=== PATIENT | male | born 1980 | race Caucasian/White ===

== ENCOUNTER 2017-04-28 16:24 | Emergency (ER) | payer OTHER ==
[~2017-04-28] VITALS: Ht 185.4 cm; Wt 78.8 kg
[~2017-04-28 16:24] MED LIST: CEPH250 PO; CHLO.12%30; HYDR-3580 PO; IBUP800 PO
[2017-04-28 16:34] VITALS: BP 165/106; PULSE 91; RESP 16; TEMP 99.1; O2SAT 97
[2017-04-28] MEDS ORDERED: LIDOCAINE HCL 1% 50 ML VIAL INFIL ONE (16:45)
[2017-04-28] MEDS ORDERED: LIDOCAINE HCL 1% PF 30 ML VIAL ONE ×2 (16:46→16:51)
[2017-04-28] MEDS ORDERED: PROPOFOL 200 MG/20 ML AMP IV ONE (17:00)
[2017-04-28 17:10] VITALS: O2SAT 97
[2017-04-28] MEDS ORDERED: PERC5TAB12 PO (17:27)
--- NOTE | 2017-04-28 17:29 | PD ---
HPI . Right shoulder dislocation Chief Complaint: Injury Time Seen by Provider: 16:35 Travel History International Travel<30 days: No Contact w/Intl Traveler<30days: No Traveled to known affect area: No History of Present Illness HPI Patient presents with chief complaint of right shoulder dislocation. He states that he dove into a shallow pool causing the dislocation. Patient reports previous dislocations of his right shoulder. Pain is constant and rated 7/10 and exacerbated by movement. He denies any numbness or tingling distally. This patient requested reduction without sedation if possible. PFSH Past Medical History Cancer: No Cardiovascular Problems: No Endocrine: No Gastrointestinal Disorders: No Genitourinary: No Immune Disorder: No Implanted Vascular Access Dvce: No Musculoskeletal: No Neurologic: No Psychiatric: No Reproductive: No Respiratory: No Past Surgical History AICD: No Arteriovenous Shunt: No Eye Surgery: Yes (CHALAZIAN CYST REMOVED) Insulin Pump: No Joint Replacement: No Pacemaker: No Other Surgery: No Social History Alcohol Use: Yes (OCCAS) Tobacco Use: Yes (1/2 PPD) Substance Use: Yes (marijuana ) Allergies-Medications (Allergen,Severity, Reaction): Coded Allergies: No Known Allergies (Unverified , 05/15/15) Reported Meds & Prescriptions Reported Meds & Active Scripts Active No Active Prescriptions or Reported Medications Review of Systems Except as stated in HPI: all other systems reviewed are Neg Musculoskeletal: Positive: Arthralgias, Limited ROM Physical Exam Narrative GENERAL: Awake and alert and in no acute distress. SKIN: Warm and dry. HEAD: Atraumatic. Normocephalic. EYES: Pupils equal and round. NECK: Trachea midline. CARDIOVASCULAR: Regular rate and rhythm. RESPIRATORY: No accessory muscle use. MUSCULOSKELETAL: Obvious right shoulder dislocation. He has normal movement distally. Normal sensation distally. NEUROLOGICAL: Awake and alert. No obvious cranial nerve deficits. Motor grossly within normal limits. Normal speech. PSYCHIATRIC: Appropriate mood and affect; insight and judgment normal. Data Data Last Documented VS Vital Signs Date Time Temp Pulse Resp B/P Pulse Ox O2 Delivery O2 Flow Rate FiO2 04/28/17 16:34 99.1 91 16 165/106 97 Orders Lidocaine 1% Inj (50 Ml) (Xylocaine 1% I (04/28/17 16:45) Lidocaine Pf 1% Inj (Xylocaine-Mpf 1% In (04/28/17 16:46) Lidocaine Pf 1% Inj (Xylocaine-Mpf 1% In (04/28/17 16:51) ^ Saline Lock (04/28/17 16:53) Propofol 200 Mg/20 Ml Inj (Diprivan 200 (04/28/17 17:00) Consent (04/28/17 16:54) MDM Medical Decision Making Medical Screen Exam Complete: Yes Emergency Medical Condition: Yes Differential Diagnosis Differential diagnosis of extremity trauma includes but is not limited to fracture, sprain or strain, dislocation, contusion Narrative Course Patient presents with an obvious right shoulder dislocation. He requested an attempt at reduction without sedation. This patient was trying to limit his cost. Therefore, x-rays have not been obtained. He presented with an obvious dislocation which was reduced without difficulty. He will be discharged with a sling and swath in place. Procedures Procedure Narrative I injected the glenohumeral joint with 10 mL of 1% plain lidocaine. I then attempted reduction by externally rotating the shoulder while lifting the arm laterally. This was not successful and the patient elected to receive sedation. After the risks and benefits were discussed the following procedure was performed: MODERATE SEDATION: The patient was placed on a inspection and testing supervisor and pulse oximetry. An ambu bag and suction was immediately available at bedside. The patient was monitored by the nurse and respiratory therapist. Oxygen saturation, expiratory CO2, heart rate and blood pressure were monitored. Procedural sedation was acheived using propofol. The patient was observed until awake and alert. Procedural Sedation time in attendance was 15 minutes. Following conscious sedation, the shoulder was easily reduced using traction/ countertraction. He tolerated the procedure well without complication. Diagnosis Primary Impression: Recurrent dislocation, right shoulder Patient Instructions: General Instructions, Shoulder Dislocation (DC) Additional Instructions: With a [id number] for the next week except when showering. Med/Other Pt SpecificInfo: Prescription(s) given Scripts Oxycodone-Acetaminophen (Percocet)5-325 mg Tab1 Tab PO Q4H PRN (PAIN) #12 TAB Ref 0 Prov:Elisabeth Zaman MD 04/28/17 Disposition: 01 DISCHARGE HOME Condition: Stable Elisabeth Zaman MD Apr 28, 2017 17:29
[2017-04-28 17:33] VITALS: BP 154/99; PULSE 80; RESP 16; O2SAT 97
== END 2017-04-28 18:14 | disposition home or self-care (01) ==
LOC: PHED 16:24
DX: M24.411 Recurrent dislocation, right shoulder (principal); X58.XXXA Exposure to other specified factors, initial encounter; Y93.11 Activity, swimming
CPT/HCPCS: 23650; 94770; 99152